=== PATIENT | male | born 1975 | race Caucasian/White ===

== ENCOUNTER 2017-02-18 15:58 | Emergency (ER) | payer MEDICAID, OTHER ==
[2017-02-18] MEDS ORDERED: Adenosine 12 MG/4 ML SDV IVPUSH ONE (16:15)
[2017-02-18] MEDS ORDERED: Adenosine 12 MG/4 ML SDV ONE (16:22)
--- NOTE | 2017-02-18 16:33 | EDM.PDOC ---
ED HPI GENERAL MEDICAL PROBLEM - General Chief Complaint: Cardiovascular Problem Stated Complaint: [facility] Time Seen by Provider: 02/18/17 16:05 Source of Information: Reports: Patient, Provider (Anni Bear), RN Notes Reviewed History Limitations: Reports: No Limitations - History of Present Illness INITIAL COMMENTS - FREE TEXT/NARRATIVE: The patient states that he developed lightheadedness while sitting at a computer around 13:50 this afternoon. A short while later, he developed the sensation of an elevated heart rate, dyspnea, he became weak, nauseous, and his arms and legs he came tingly. He went to work at 14:00, but his symptoms persisted. His heart rate felt to be over 200 at 14:15, therefore he went to the [facility] where an ECG demonstrated an SVT at 223 bpm (we have a fax of that ECG. He states that his heart rate dropped to 130 following a Valsalva maneuver along with carotid massage, however, it has persisted at 130. The patient was brought here by EMS. The patient states that he had similar symptoms about one year ago, however, his symptoms resolved after about 20 minutes, and he did not seek medical evaluation. The patient denies recent lower extremity edema. He acknowledges that he drinks about 6 cans of soda per day, although only one today. The patient's PCP is Dr. English, from [place]. - Related Data Allergies Allergy/AdvReac Type Severity Reaction Status Date / Time No Known Allergies Allergy Verified 02/18/17 16:10 Home Meds: Home Meds ALPRAZolam [Xanax] 1 mg PO BID PRN 02/18/17 [History] Past Medical History Gastrointestinal History: Reports: GERD Psychiatric History: Reports: Anxiety, Bipolar, Depression Endocrine/Metabolic History: Reports: Obesity/BMI 30+ - Past Surgical History HEENT Surgical History: Reports: Oral Surgery ([place] teeth extraction) GI Surgical History: Reports: Ciro Fundoplication Social & Family History - Tobacco Use Smoking Status *Q: Current Every Day Smoker Years of Tobacco use: 19 Packs/Tins Daily: 2 Packs/Tins Daily Comment: Down from 3 ppd - Alcohol Use Alcohol Use History: Yes Date/Time of Last Drink Comment: None since 2009 Alcohol Use in Last Twelve Months: No - Recreational Drug Use Recreational Drug Use: Yes Drug Use in Last 12 Months: No Recreational Drug Type: Reports: Marijuana/Hashish - Living Situation & Occupation Living situation: Reports: , with Family (kids) Occupation: Employed ([employer]) ED ROS GENERAL - Review of Systems Review Of Systems: See Below Constitutional: Reports: No Symptoms HEENT: Reports: No Symptoms Respiratory: Reports: No Symptoms Cardiovascular: Reports: No Symptoms Endocrine: Reports: No Symptoms GI/Abdominal: Reports: Diarrhea (3 and 4 days ago), Vomiting (3 and 4 days ago) : Reports: No Symptoms Musculoskeletal: Reports: No Symptoms Skin: Reports: No Symptoms Neurological: Reports: No Symptoms Psychiatric: Reports: No Symptoms Hematologic/Lymphatic: Reports: No Symptoms Immunologic: Reports: No Symptoms ED EXAM, GENERAL - Physical Exam Exam: See Below Exam Limited By: No Limitations General Appearance: Alert, WD/WN, No Apparent Distress Eye Exam: Bilateral Eye: Normal Inspection Ears: Normal External Exam, Hearing Grossly Normal Nose: Normal Inspection, No Blood Throat/Mouth: Normal Inspection, Normal Lips, Normal Voice, No Airway Compromise Head: Atraumatic, Normocephalic Neck: Normal Inspection, Full Range of Motion Respiratory/Chest: No Respiratory Distress, Lungs Clear, Normal Breath Sounds, No Accessory Muscle Use Cardiovascular: Normal Peripheral Pulses, No Gallop, No JVD, No Murmur, No Rub, Tachycardia (regular) Peripheral Pulses: 4+: Radial (L), Radial (R) GI/Abdominal: Normal Bowel Sounds, Soft, Non-Tender, No Organomegaly, No Distention, No Abnormal Bruit, No Mass, Other (Obese) (Male) Exam: Deferred Rectal (Males) Exam: Deferred Back Exam: Normal Inspection, Full Range of Motion, NT Extremities: Normal Inspection, Normal Range of Motion, No Pedal Edema, Normal Capillary Refill Neurological: Alert, Oriented, Normal Cognition, No Motor/Sensory Deficits Psychiatric: Normal Affect, Anxious Skin Exam: Warm, Dry, Intact, Normal Color, No Rash EKG INTERPRETATION EKG Date: 02/18/17 Time: 16:17 Rhythm: Other (Sinus tachycardia versus atrial flutter with 2:1 conduction versus reentrant tachycardia) Rate (Beats/Min): 126 Raymond: LAD-Left Raymond Deviation P-Wave: Present QRS: Normal ST-T: Normal QT: Normal Comparison: NA - No Prior EKG Course - Vital Signs Last Recorded V/S: Last Vital Signs Temp 36.2 C 10/24/17 16:04 Pulse 133 H 02/18/17 16:04 Resp 22 H 02/18/17 16:04 BP 104/83 02/18/17 16:04 Pulse Ox 98 02/18/17 16:04 - Orders/Labs/Meds Orders: Active Orders 24 hr Category Date Time Status EKG Documentation Completion [RC] STAT Care 02/18/17 16:05 Active Diltiazem 125 mg Med 02/18/17 16:45 Active Sodium Chloride 0.9% [Normal Saline] 100 ml IV TITRATE Sodium Chloride 0.9% [Normal Saline] 1,000 ml Med 02/18/17 17:00 Active IV ASDIRECTED EKG 12 Lead [EK] Stat Ther 02/18/17 16:27 Ordered Medication Orders Diltiazem HCl 125 mg/ Sodium (Chloride) 125 mls @ 10 mls/hr IV TITRATE JENNIE; 10 MG/HR PRN Reason: Protocol Last Admin: 02/18/17 17:37 Dose: 10 mg/hr, 10 mls/hr Sodium Chloride (Normal Saline) 1,000 mls @ 150 mls/hr IV ASDIRECTED JENNIE Last Admin: 02/18/17 17:36 Dose: 150 mls/hr Labs: Laboratory Tests 02/18/17 02/18/17 02/18/17 Range/Units 16:30 16:30 16:30 WBC 7.28 (4.23-9.07) K/mm3 RBC 5.39 (4.63-6.08) M/mm3 Hgb 15.5 (13.7-17.5) gm/L Hct 44.2 (40.1-51.0) % MCV 82.0 (79.0-92.2) fl MCH 28.8 (25.7-32.2) pg MCHC 35.1 (32.2-35.5) g/dl RDW Std Deviation 37.4 (35.1-43.9) fL Plt Count 290 (163-337) K/mm3 MPV 10.3 (9.4-12.3) fl Neutrophils % (Manual) 56 (40-60) % Band Neutrophils % 0 (0-10) % Lymphocytes % (Manual) 30 (20-40) % Atypical Lymphs % 0 % Monocytes % (Manual) 12 H (2-10) % Eosinophils % (Manual) 1 (0.8-7.0) % Basophils % (Manual) 1 (0.2-1.2) Platelet Estimate Adequate Plt Morphology Comment Normal RBC Morph Comment Normal PT 10.2 (8.0-13.0) SECONDS INR 0.94 APTT 31 (22-36) SECONDS D-Dimer, Quantitative 0.20 (0.19-0.59) mg/L Sodium 140 (136-145) mEq/L Potassium 3.4 L (3.5-5.1) mEq/L Chloride 106 (98-107) mEq/L Carbon Dioxide 24 (21-32) mEq/L Anion Gap 13.4 (5-15) BUN 11 (7-18) mg/dL Creatinine 0.9 (0.7-1.3) mg/dL Est Cr Clr Drug Dosing 106.61 mL/min Estimated GFR (MDRD) > 60 (>60) mL/min BUN/Creatinine Ratio 12.2 L (14-18) Glucose 105 (74-106) mg/dL Calcium 8.9 (8.5-10.1) mg/dL Magnesium 1.9 (1.8-2.4) mg/dl Total Bilirubin 1.5 H (0.2-1.0) mg/dL AST 20 (15-37) U/L ALT 35 (16-63) U/L Alkaline Phosphatase 101 (46-116) U/L Troponin I 0.018 (0.00-0.056) ng/mL NT-Pro-B Natriuret Pep 24 (0-125) pg/mL Total Protein 6.7 (6.4-8.2) g/dl Albumin 3.7 (3.4-5.0) g/dl Globulin 3.0 gm/dL Albumin/Globulin Ratio 1.2 (1-2) Meds: Medications Generic Name Dose Route Start Last Admin Trade Name Freq PRN Reason Stop Dose Admin Diltiazem HCl 125 mg/ Sodium 125 mls @ 10 mls/hr 02/18/17 16:45 02/18/17 17: 37 Chloride IV 10 mg/hr TITRATE JENNIE 10 mls/hr Protocol Administration 10 MG/HR Sodium Chloride 1,000 mls @ 150 mls/hr 02/18/17 17:00 02/18/17 17:36 Normal Saline IV 150 mls/hr ASDIRECTED JENNIE Administration Discontinued Medications Generic Name Dose Route Start Last Admin Trade Name Eleuterio PRN Reason Stop Dose Admin Adenosine Confirm 02/18/17 16:22 02/18/17 16:25 Adenocard Administered 02/18/17 16:23 Not Given Dose 12 mg .ROUTE .STK-MED ONE Adenosine 12 mg 02/18/17 16:15 02/18/17 16:25 Adenocard IVPUSH 02/18/17 16:16 12 mg NOW ONE Administration Diltiazem HCl 10 mg 02/18/17 16:45 02/18/17 17:35 Diltiazem IVPUSH 02/18/17 16:46 10 mg ONETIME STA Administration Sodium Chloride Confirm 02/18/17 17:24 02/18/17 17:39 Normal Saline Administered 02/18/17 17:25 Not Given Dose 100 mls @ as directed .ROUTE .STK-MED ONE - Re-Assessments/Exams Free Text/Narrative Re-Assessment/Exam: 02/18/17 16:37 A continuous ECG was run during the administration of 12 mg IV adenosine. The patient's heart rate slowed, however, no P waves are seen in the ventricular interspace. This would not be consistent with either sinus tachycardia or atrial flutter. This would be consistent with atrial fibrillation, however, the patient's rate has been extraordinarily regular at 130, and P waves are seen, excluding atrial fibrillation. I have to, therefore to conclude that this is a reentrant tachycardia that, unusually, restarted following the adenosine. I will start the patient on IV Cardizem. 02/18/17 17:20 Portable chest radiograph appears to be grossly normal. Cardiac silhouette is within normal limits. No pulmonary vascular congestion. No pleural effusions. No focal infiltrate. No pneumothorax. Formal read per the Radiologist pending. 02/18/17 17:[address] Soriano at 17:55. He accepts the patient for admission. 02/18/17 18:05 The above was discussed with the patient, his , and 2 daughters. I explained his test results, and the reason that he is on the Cardizem drip, which currently has his heart rate reduced to around 100. Nevertheless, the patient said that he wants to go home. I explained that he should expect that his heart rate will go back up if the Cardizem drip is discontinued. He stated that he was aware of that, but that he wanted to leave anyway. I informed him that he would have to sign AMA, and he agreed. 02/18/17 19:10 Dr. Soriano notified of the patient leaving AMA. Departure - Departure Time of Disposition: 17:58 Disposition: Against Medical Advice 07 Condition: Fair Clinical Impression: Tachycardia Instructions: Sinus Tachycardia Referrals: Sheldon English MD [Primary Care Provider] - Additional Instructions: You were seen in the emergency room for an elevated heart rate, with lightheadedness, shortness of breath, tingling and numbness of her arms and legs , weakness, and nausea. You were originally found to have a heart rate of 223 at [facility], down to 130 after some maneuvers. The exact cause of your elevated heart rate is not clear, but appears to be a reentrant tachycardia. Your heart rate was slowed to a normal rate with the IV medicine Cardizem. We recommended that you be admitted to the hospital for further evaluation and treatment, however, you have elected to go home AGAINST MEDICAL ADVICE. If you change your mind, please return to the ER, otherwise, please follow-up with your PCP, Dr. Albright, at the next available appointment. - My Orders Last 24 Hours: My Active Orders 02/18/17 16:05 EKG Documentation Completion [RC] STAT 02/18/17 16:27 EKG 12 Lead [EK] Stat 02/18/17 16:45 Diltiazem 125 mg Sodium Chloride 0.9% [Normal Saline] 100 ml IV TITRATE 02/18/17 17:00 Sodium Chloride 0.9% [Normal Saline] 1,000 ml IV ASDIRECTED - Assessment/Plan Last 24 Hours: My Active Orders 02/18/17 16:05 EKG Documentation Completion [RC] STAT 02/18/17 16:27 EKG 12 Lead [EK] Stat 02/18/17 16:45 Diltiazem 125 mg Sodium Chloride 0.9% [Normal Saline] 100 ml IV TITRATE 02/18/17 17:00 Sodium Chloride 0.9% [Normal Saline] 1,000 ml IV ASDIRECTED
[2017-02-18] MEDS ORDERED: Diltiazem 125 MG in Sodium Chloride 0.9% 100 ML IV SCH (16:45)
[2017-02-18] MEDS ORDERED: Diltiazem 25 MG/5 ML SDV IVPUSH STA (16:45)
[2017-02-18] MEDS ORDERED: Sodium Chloride 0.9% 1,000 ML IV SCH (17:00)
[2017-02-18] MEDS ORDERED: Sodium Chloride 0.9% 100 ML ONE (17:24)
--- NOTE | 2017-02-18 17:30 | CR ---
Chest: Portable view of the chest was obtained. Comparison: No previous chest x-ray. Heart size and mediastinum are normal. Lungs are clear. Bony structures are grossly intact. Impression: 1. Nothing acute is identified on portable chest x-ray. Diagnostic code #1
== END 2017-02-18 18:20 | disposition left against medical advice (07) ==
LOC: JD.ED 15:58
DX: R00.0 Tachycardia, unspecified (principal); F17.210 Nicotine dependence, cigarettes, uncomplicated
CPT/HCPCS: 36415; 71010; 80053; 83735; 83880; 84484; 85025; 85379; 85610; 85730; 96365; 96375; 96376; 99285; J0153; J3490; J7030; J7040

== ENCOUNTER 2018-09-06 12:22 | Emergency (ER) | payer BC, OTHER ==
--- NOTE | 2018-09-06 13:19 | EDM.PDOC ---
ED HPI GENERAL MEDICAL PROBLEM - General Chief Complaint: Upper Extremity Injury/Pain Stated Complaint: LEFT ELBOW PAIN Time Seen by Provider: 09/06/18 12:34 Source of Information: Reports: Patient, RN Notes Reviewed History Limitations: Reports: No Limitations - History of Present Illness INITIAL COMMENTS - FREE TEXT/NARRATIVE: Patient is a 42-year-old male who presents to the ED for the evaluation of a left elbow injury. The patient notes this injury took place roughly 1 month ago. He states he was helping move a very heavy box with another gentleman, when the other gentleman dropped his end of the box. This resulted in the patient being only one supporting the box. The patient notes that his had some pain in his left elbow since that, however he is been working long hours and harder, and noticed that last night the pain worsened. 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 He would rate his pain at a 6 out of 10 today. The patient states that he has been taking 2 tabs of Tylenol about every 45 hours, and 2 tabs of ibuprofen every 45 hours as well during the day to alleviate his pain, and this is not providing much pain relief any longer. The patient states that his primary care provider would be Anni Bear under the [facility]. Left Elbow Pain Score (Numeric/FACES): 6 - Related Data Allergies Allergy/AdvReac Type Severity Reaction Status Date / Time No Known Allergies Allergy Verified 04/08/18 07:16 Home Meds: Home Meds HYDROcodone/Ibuprofen [Hydrocodone-Ibuprofen 7.5-200] 1 each PO QPM #10 tablet 09/06/18 [Rx] traMADol [Ultram] 50 mg PO Q6H PRN #28 tab 09/06/18 [Rx] Past Medical History Cardiovascular History: Reports: Arrhythmia Gastrointestinal History: Reports: GERD, Other (See Below) Other Gastrointestinal History: esophagitis Genitourinary History: Reports: Renal Calculus Psychiatric History: Reports: Anxiety, Bipolar, Depression Endocrine/Metabolic History: Reports: Obesity/BMI 30+ - Past Surgical History HEENT Surgical History: Reports: Oral Surgery GI Surgical History: Reports: Ciro Fundoplication Other Musculoskeletal Surgeries/Procedures:: l elbow pain Social & Family History - Family History Family Medical History: Noncontributory - Tobacco Use Smoking Status *Q: Current Every Day Smoker Years of Tobacco use: 25 Packs/Tins Daily: 2 - Caffeine Use Caffeine Use: Reports: Soda - Recreational Drug Use Recreational Drug Use: No - Living Situation & Occupation Living situation: Reports: , with Significant Other (Girlfriend), with Family (7 kids) 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) Review of Systems - Review of Systems Review Of Systems: See Below Constitutional: Reports: No Symptoms Eyes: Reports: No Symptoms Ears: Reports: No Symptoms Nose: Reports: No Symptoms Mouth/Throat: Reports: No Symptoms Respiratory: Reports: No Symptoms Cardiovascular: Reports: No Symptoms GI/Abdominal: Reports: No Symptoms Genitourinary: Reports: No Symptoms Musculoskeletal: Reports: Joint Pain ( Left elbow pain) Skin: Reports: No Symptoms Neurological: Reports: No Symptoms Psychiatric: Reports: No Symptoms ED EXAM, GENERAL - Physical Exam Exam: See Below Exam Limited By: No Limitations General Appearance: Alert, WD/WN, No Apparent Distress Respiratory/Chest: No Respiratory Distress, Lungs Clear, Normal Breath Sounds, No Accessory Muscle Use, Chest Non-Tender Cardiovascular: Normal Peripheral Pulses, Regular Rate, Rhythm, No Murmur Peripheral Pulses: 3+: Radial (L), Radial (R) Extremities: Normal Inspection, Normal Range of Motion, Normal Capillary Refill , Arm Pain (Left lateral elbow pain. This is most prominent over his lateral epicondyles. The pain is mostly with gripping, supination and pronation of the left wrist and hand.) Neurological: Alert, Oriented, Normal Cognition, Normal Reflexes, No Motor/ Sensory Deficits Psychiatric: Normal Affect, Normal Mood Skin Exam: Warm, Dry, Intact, Normal Color, No Rash Course - Vital Signs Last Recorded V/S: Last Vital Signs Temp 97.0 F 09/06/18 12:30 Pulse 80 09/06/18 12:30 Resp 14 09/06/18 12:30 BP 125/88 09/06/18 12:30 Pulse Ox 100 09/06/18 12:30 - Re-Assessments/Exams Free Text/Narrative Re-Assessment/Exam: 09/06/18 13:38 Patient presents to the ED for the evaluation of left elbow pain. This injury did take place roughly 1 month ago, I do not think that he has fractured any bones, it is likely that this is a soft tissue injury, I did explain to the patient the best imaging modality would be an MRI at this point. I did write him with an outpatient MRI order of his left elbow, and directed him to follow up with Anni Bear. I did provide the gentleman with tramadol for pain relief during the day, and hydrocodone/ibuprofen 7.5/200 for nighttime use. I did caution the gentleman on overuse of the joint in that constant aggravation of this injury will not provide him appropriate amount of time to heal. 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 I did provide the gentleman with a work note for when his MRI get scheduled so that he might be able to attend his appointment without his work being upset. Departure - Departure Time of Disposition: 13:15 Disposition: Home, Self-Care 01 Condition: Fair Clinical Impression: Left elbow pain - Discharge Information *PRESCRIPTION DRUG MONITORING PROGRAM REVIEWED*: Yes *COPY OF PRESCRIPTION DRUG MONITORING REPORT IN PATIENT AINSLEY: No Prescriptions: HYDROcodone/Ibuprofen [Hydrocodone-Ibuprofen 7.5-200] 1 each PO QPM #10 tablet traMADol [Ultram] 50 mg PO Q6H PRN #28 tab PRN Reason: Pain Instructions: Musculoskeletal Pain Referrals: PCP,None [Primary Care Provider] - Forms: ED Department Discharge, ED Return to Work/School Form Additional Instructions: You have been evaluated in the ED for your left elbow pain Your injury is likely involving the soft tissue of your left elbow and forearm, the best imaging modality for this is an MRI, I have provided with an order for an outpatient MRI, our x-ray department will contact you to schedule this appointment. Please follow up with Anni Bear after the MRI has been done, as she can provide you with further management of your injury. Please use ice as tolerated to the affected area. You may take tylenol 500 mg or ibuprofen 600mg q6 hrs for pain relief. Please do so until you have a tolerable level of pain with activity. Do not exceed 4000mg tylenol, Do not exceed 3200mg ibuprofen in a 24 hour time period. You have been provided with a prescription for tramadol, 50 mg, please take every 6 hours as needed for pain not relieved by Tylenol or ibuprofen alone. You have been provided with hydrocodone/ibuprofen 7.5/200, please take 1 tab before bed time as needed for pain relief. Please watch how much ibuprofen you' re taking in a day, as you should not exceed 3200 mg in a 24-hour time span. Please return to ED if your symptoms should change or worsen.
== END 2018-09-06 13:37 | disposition home or self-care (01) ==
LOC: JD.ED 12:22
DX: M25.522 Pain in left elbow (principal); E66.9 Obesity, unspecified; F17.210 Nicotine dependence, cigarettes, uncomplicated
CPT/HCPCS: 99283

== ENCOUNTER 2020-11-23 18:01 | Emergency (ER) | payer MEDICAID ==
--- NOTE | 2020-11-23 19:28 | EDM.PDOC ---
ED HPI GENERAL MEDICAL PROBLEM - General Chief Complaint: Abdominal Pain Stated Complaint: HERNIA PAIN Time Seen by Provider: 11/23/20 19:20 - History of Present Illness INITIAL COMMENTS - FREE TEXT/NARRATIVE: 45-year-old male presents the emergency room with what he believes is hernia pain. Patient was diagnosed with a ventral hernia many years ago and thinks this is coming back. It was not big enough to do anything with at that time so it was never repaired. The patient's been coughing a little bit the last couple of days and this pain is been getting significantly worse with the coughing. He has not had any nausea vomiting fevers diarrhea or constipation. He has no other complaints at this time. The patient the past has had a Loki fundoplication for Munoz's and is doing much better with this. Treatments EBAY RESELLER: Reports: Other (see below) Other Treatments EBAY RESELLER: motrin and tylenol Left Upper Abdomen Pain Score (Numeric/FACES): 5 - Related Data Allergies Allergy/AdvReac Type Severity Reaction Status Date / Time No Known Allergies Allergy Verified 11/18/18 12:33 Home Meds: Home Meds ClonazePAM [KlonoPIN] 0.5 mg PO ASDIRECTED 11/23/20 [History] Metoprolol Succinate 25 mg PO DAILY 11/23/20 [History] OLANZapine [Olanzapine] 15 mg PO DAILY 11/23/20 [History] Omeprazole 20 mg PO DAILY 11/23/20 [History] busPIRone [Buspar] 30 mg PO BEDTIME 11/23/20 [History] lamoTRIgine [Lamotrigine] 150 mg PO DAILY 11/23/20 [History] Past Medical History Cardiovascular History: Reports: Arrhythmia Respiratory History: Reports: None Gastrointestinal History: Reports: GERD, Other (See Below) Other Gastrointestinal History: esophagitis Genitourinary History: Reports: Renal Calculus Neurological History: Reports: None Psychiatric History: Reports: Anxiety, Bipolar, Depression Endocrine/Metabolic History: Reports: Obesity/BMI 30+ Hematologic History: Reports: None Immunologic History: Reports: None Oncologic (Cancer) History: Reports: None Dermatologic History: Reports: None - Infectious Disease History Infectious Disease History: Reports: None - Past Surgical History Head Surgeries/Procedures: Reports: None HEENT Surgical History: Reports: Oral Surgery GI Surgical History: Reports: Ciro Fundoplication Male Surgical History: Reports: None Other Musculoskeletal Surgeries/Procedures:: l elbow pain Social & Family History - Family History Family Medical History: No Pertinent Family History - Tobacco Use Tobacco Use Status *Q: Current Every Day Tobacco User Years of Tobacco use: 28 Packs/Tins Daily: 2 - Caffeine Use Caffeine Use: Reports: Soda - Living Situation & Occupation Living situation: Reports: , with Significant Other (Girlfriend), with Family (7 kids) Occupation: Employed ([employer]) ED ROS GENERAL - Review of Systems Review Of Systems: See Below Constitutional: Reports: No Symptoms HEENT: Reports: No Symptoms Respiratory: Reports: Cough. Denies: Shortness of Breath, Sputum Cardiovascular: Reports: No Symptoms Endocrine: Reports: No Symptoms GI/Abdominal: Reports: Abdominal Pain. Denies: Constipation, Diarrhea, Nausea, Vomiting Musculoskeletal: Reports: No Symptoms Skin: Reports: No Symptoms Neurological: Reports: No Symptoms Psychiatric: Reports: No Symptoms ED EXAM, GENERAL - Physical Exam Exam: See Below Exam Limited By: No Limitations General Appearance: Alert, No Apparent Distress Head: Atraumatic, Normocephalic Neck: Normal Inspection, Supple, Non-Tender, Full Range of Motion Respiratory/Chest: No Respiratory Distress, Lungs Clear, Normal Breath Sounds Cardiovascular: Normal Peripheral Pulses, Regular Rate, Rhythm, No Edema GI/Abdominal: Normal Bowel Sounds, Soft, Tender (Superficial tenderness just to the left of the midline and just above the umbilicus. Is really hard isolator defect and hernia with the body habitus of this gentleman. He has exquisite tenderness here however) Extremities: Normal Inspection Neurological: Alert, Oriented, Normal Cognition Psychiatric: Normal Affect, Normal Mood Course - Vital Signs Last Recorded V/S: Last Vital Signs Temp 36.5 C 11/23/20 18:36 Pulse 73 11/23/20 18:36 Resp 20 11/23/20 18:36 BP 133/94 H 11/23/20 18:36 Pulse Ox 96 11/23/20 18:36 - Orders/Labs/Meds Orders: Active Orders 24 hr Category Date Time Status Abdomen Pelvis w Cont [CT] Stat Exams 11/23/20 19:32 Taken Sodium Chloride 0.9% [Saline Flush] Med 11/23/20 20:30 Active 10 ml FLUSH ASDIRECTED Medication Orders Sodium Chloride (Sodium Chloride 0.9% 10 Ml Syringe) 10 ml FLUSH ASDIRECTED JENNIE Last Admin: 11/23/20 20:52 Dose: 10 ml Documented by: RAMAN Labs: Laboratory Tests 11/23/20 11/23/20 11/23/20 Range/Units 19:42 19:42 20:38 WBC 7.97 (4.23-9.07) K/mm3 RBC 5.15 (4.63-6.08) M/mm3 Hgb 14.8 (13.7-17.5) gm/dl Hct 43.7 (40.1-51.0) % MCV 84.9 (79.0-92.2) fl MCH 28.7 (25.7-32.2) pg MCHC 33.9 (32.2-35.5) g/dl RDW Std Deviation 40.7 (35.1-43.9) fL Plt Count 280 (163-337) K/mm3 MPV 10.6 (9.4-12.3) fl Neut % (Auto) 57.5 (34.0-67.9) % Lymph % (Auto) 31.2 (21.8-53.1) % [place] % (Auto) 8.4 (5.3-12.2) % Eos % (Auto) 2.1 (0.8-7.0) Baso % (Auto) 0.5 (0.1-1.2) % Neut # (Auto) 4.58 (1.78-5.38) K/mm3 Lymph # (Auto) 2.49 (1.32-3.57) K/mm3 [place] # (Auto) 0.67 (0.30-0.82) K/mm3 Eos # (Auto) 0.17 (0.04-0.54) K/mm3 Baso # (Auto) 0.04 (0.01-0.08) K/mm3 Sodium 145 (136-145) mEq/L Potassium 3.3 L (3.5-5.1) mEq/L Chloride 108 H (98-107) mEq/L Carbon Dioxide 28 (21-32) mEq/L Anion Gap 12.3 (5-15) BUN 14 (7-18) mg/dL Creatinine 1.0 (0.7-1.3) mg/dL Est Cr Clr Drug Dosing 92.15 mL/min Estimated GFR (MDRD) > 60 (>60) mL/min BUN/Creatinine Ratio 14.0 (14-18) Glucose 101 H (70-99) mg/dL Calcium 8.4 L (8.5-10.1) mg/dL Total Bilirubin 0.4 (0.2-1.0) mg/dL AST 18 (15-37) U/L ALT 45 (16-63) U/L Alkaline Phosphatase 88 (46-116) U/L Total Protein 6.6 (6.4-8.2) g/dl Albumin 3.7 (3.4-5.0) g/dl Globulin 2.9 gm/dL Albumin/Globulin Ratio 1.3 (1-2) Lipase 80 (73-393) U/L Urine Color Light yellow (Yellow) Urine Appearance Clear (Clear) Urine pH 7.0 (5.0-8.0) Ur Specific [place] 1.020 (1.005-1.030) Urine Protein Negative (Negative) Urine Glucose (UA) Negative (Negative) Urine Ketones Negative (Negative) Urine Occult Blood Negative (Negative) Urine Nitrite Negative (Negative) Urine Bilirubin Negative (Negative) Urine Urobilinogen 0.2 (0.2-1.0) Ur Leukocyte Esterase Negative (Negative) Meds: Medications Generic Name Dose Route Start Last Admin Trade Name Frejohn PRN Reason Stop Dose Admin Sodium Chloride 10 ml 11/23/20 20:30 11/23/20 20:52 Sodium Chloride 0.9% 10 Ml Syringe FLUSH 10 ml ASDIRECTED JENNIE Administration Discontinued Medications Generic Name Dose Route Start Last Admin Trade Name Eleuterio PRN Reason Stop Dose Admin Diatrizoate Meglum/Diatrizoate Sod 120 ml 11/23/20 20:29 11/23/20 20:51 Diatrizoate Meglumine/Diatrizoate Sodium 37% 120 Ml Bottle PO 11/23/20 20:30 90 ml ONETIME ONE Administration Fentanyl 50 mcg 11/23/20 20:05 11/23/20 20:12 Fentanyl 100 Mcg/2 Ml Sdv IVPUSH 11/23/20 20:06 50 mcg ONETIME ONE Administration Lactated Ringer's 1,000 mls @ 999 mls/hr 11/23/20 19:31 11/23/20 19:49 Ringers, Lactated IV 11/23/20 20:31 999 mls/hr .BOLUS ONE Administration Iopamidol 50 ml 11/23/20 20:29 11/23/20 20:51 Iopamidol 612 Mg/Ml 50 Ml Sdv IVPUSH 11/23/20 20:30 25 ml ONETIME ONE Administration Iopamidol 100 ml 11/23/20 20:29 11/23/20 20:52 Iopamidol 612 Mg/Ml 100 Ml Bottle IVPUSH 11/23/20 20:30 100 ml ONETIME ONE Administration Potassium Chloride 40 meq 11/23/20 21:35 11/23/20 21:40 Potassium Chloride 20 Meq Tab.Er PO 11/23/20 21:36 40 meq ONETIME ONE Administration - Re-Assessments/Exams Free Text/Narrative Re-Assessment/Exam: 11/23/20 19:33 Labs work on hydration in order a CT his exam is a little unreliable because of his obesity. 11/23/20 21:36 Potassium is a little low we will give him 40 mEq of oral K 11/23/20 22:05 Evaluation is negative for any acute changes. He has nonobstructing left kidney stone he has hepatics steatosis and area of hypodensity in the right lobe of the liver that is too small to characterize. Departure - Departure Time of Disposition: 22:06 Disposition: Home, Self-Care 01 Clinical Impression: Abdominal wall pain - Discharge Information Referrals: Anni Bear, [facility] [Primary Care Provider] - Forms: ED Department Discharge Additional Instructions: Return to the emergency room with any questions problems or worsening symptoms. Follow-up with your regular healthcare provider this next week for recheck. Tylenol as needed for aches and pains. Do not exceed the recommended dose on the bottle. Sepsis Event Note (ED) - Evaluation Sepsis Screening Result: No Definite Risk - Focused Exam Vital Signs: Vital Signs Temp Pulse Resp BP Pulse Ox 11/23/20 18:36 36.5 C 73 20 133/94 H 96 - My Orders Last 24 Hours: My Active Orders 11/23/20 19:32 Abdomen Pelvis w Cont [CT] Stat 11/23/20 20:30 Sodium Chloride 0.9% [Saline Flush] 10 ml FLUSH ASDIRECTED - Assessment/Plan Last 24 Hours: My Active Orders 11/23/20 19:32 Abdomen Pelvis w Cont [CT] Stat 11/23/20 20:30 Sodium Chloride 0.9% [Saline Flush] 10 ml FLUSH ASDIRECTED
[2020-11-23] MEDS ORDERED: Lactated Ringers 1,000 ML IV ONE (19:31)
[2020-11-23] MEDS ORDERED: fentaNYL 100 MCG/2 ML SDV IVPUSH ONE (20:05)
[2020-11-23] MEDS ORDERED: Diatrizoate Meglumine/Diatrizoate Sodium 37% 120 ML Bottle PO ONE (20:29)
[2020-11-23] MEDS ORDERED: Iopamidol 612 MG/ML 100 ML Bottle IVPUSH ONE (20:29)
[2020-11-23] MEDS ORDERED: Iopamidol 612 MG/ML 50 ML SDV IVPUSH ONE (20:29)
[2020-11-23] MEDS ORDERED: Sodium Chloride 0.9% 10 ML Syringe FLUSH SCH (20:30)
[2020-11-23] MEDS ORDERED: Potassium Chloride 20 MEQ Tab.ER PO ONE (21:35)
--- NOTE | 2020-11-24 06:45 | CT ---
CT abdomen and pelvis Technique: Multiple axial sections were obtained from above the dome of the diaphragm inferiorly through the pubic symphysis. Intravenous and oral contrast were utilized. Delayed images were obtained through the bladder. Reconstructed coronal and sagittal images were also obtained. Comparison: Prior CT abdomen and pelvis study performed without contrast dated 04/19/[address] study of 01/18/13. Findings: Visualized lung bases show nothing acute. Liver shows slight fatty infiltration. Minimal low density finding is seen within the inferior right lobe of the liver which appears stable from previous CT studies and is therefore benign. Small amount of accessory splenic tissue is noted medial to the spleen. Spleen size is normal. Adrenal glands show no nodule. Pancreas is within normal limits. Gallbladder contains no calcified gallstones. Kidneys show symmetric contrast enhancement. Several small nonobstructing calculi are seen within the left kidney. No ureteral dilatation or ureteral stone is seen. Abdominal aorta shows no aneurysm. No retroperitoneal adenopathy or mesenteric abnormalities are seen. Appendix is not visualized with certainty. No pelvic mass or adenopathy is seen. Delayed images show contrast within the distal ureters and the bladder. Bone window settings were reviewed which show no acute osseous findings. Impression: 1. Findings as noted above which are stable. 2. Nothing acute is appreciated on CT study of the abdomen and pelvis. Diagnostic code #2 I agree with preliminary report from [facility], finalized on 11/23/20, 10:57 PM CDT, code 1
== END 2020-11-23 22:14 | disposition home or self-care (01) ==
LOC: JD.ED 18:01
DX: R10.12 Left upper quadrant pain (principal); K21.9 Gastro-esophageal reflux disease without esophagitis; E66.9 Obesity, unspecified; Z68.39 Body mass index [BMI] 39.0-39.9, adult; Z79.899 Other long term (current) drug therapy; Z72.0 Tobacco use
CPT/HCPCS: 36415; 74177; 80053; 81003; 83690; 85025; 96374; 99284; A9270; J3010; J7120; Q9963; Q9967

== ENCOUNTER 2020-12-16 15:43 | Emergency (ER) | payer MEDICAID ==
[2020-12-16] MEDS ORDERED: Ondansetron 4 MG/2 ML SDV IVPUSH ONE (16:53)
[2020-12-16] MEDS ORDERED: HYDROmorphone 1 MG/ML Syringe IVPUSH STA (16:53)
--- NOTE | 2020-12-16 16:53 | EDM.PDOC ---
ED HPI GENERAL MEDICAL PROBLEM - General Chief Complaint: Genitourinary Problem Stated Complaint: KIDNEY STONES Time Seen by Provider: 12/16/20 16:48 Source of Information: Reports: Patient, RN Notes Reviewed History Limitations: Reports: No Limitations - History of Present Illness INITIAL COMMENTS - FREE TEXT/NARRATIVE: Patient is a 45-year-old male who presents to the ER for the evaluation of his left flank pain. Patient has a history of kidney stones, and states that this pain started at around 11 or 1130 this morning. He states that the pain is sharp and stabbing in nature, and seems to come and go. He notes that is very similar to the pain he feels when he has had kidney stones in the past. He has had no fevers or chills, cough or shortness of breath, he has had some nausea but no vomiting or diarrhea. He is complaining of no urinary discomfort at this time. Primary care provider is Anni Bear. Left Lower Back Pain Score (Numeric/FACES): 8 - Related Data Allergies Allergy/AdvReac Type Severity Reaction Status Date / Time No Known Allergies Allergy Verified 12/16/20 16:56 Home Meds: Home Meds ClonazePAM [KlonoPIN] 0.5 mg PO ASDIRECTED 11/23/20 [History] Metoprolol Succinate 25 mg PO DAILY 11/23/20 [History] OLANZapine [Olanzapine] 15 mg PO DAILY 11/23/20 [History] Omeprazole 20 mg PO DAILY 11/23/20 [History] busPIRone [Buspar] 30 mg PO BEDTIME 11/23/20 [History] lamoTRIgine [Lamotrigine] 150 mg PO DAILY 11/23/20 [History] Acetaminophen/oxyCODONE [Percocet 325-5 MG] 1 each PO Q6H PRN #20 tab 12/16/20 [Rx] Ondansetron [Zofran ODT] 4 mg PO Q8H PRN #15 tab.dis 12/16/20 [Rx] Tamsulosin [Tamsulosin 24 Hr] 0.4 mg PO DAILY #7 cap.er 12/16/20 [Rx] Past Medical History Cardiovascular History: Reports: Arrhythmia Respiratory History: Reports: None Gastrointestinal History: Reports: GERD, Other (See Below) Other Gastrointestinal History: esophagitis Genitourinary History: Reports: Renal Calculus Neurological History: Reports: None Psychiatric History: Reports: Anxiety, Bipolar, Depression Endocrine/Metabolic History: Reports: Obesity/BMI 30+ Hematologic History: Reports: None Immunologic History: Reports: None Oncologic (Cancer) History: Reports: None Dermatologic History: Reports: None - Infectious Disease History Infectious Disease History: Reports: None - Past Surgical History Head Surgeries/Procedures: Reports: None HEENT Surgical History: Reports: Oral Surgery GI Surgical History: Reports: Ciro Fundoplication Male Surgical History: Reports: None Other Musculoskeletal Surgeries/Procedures:: l elbow pain Social & Family History - Family History Family Medical History: No Pertinent Family History - Caffeine Use Caffeine Use: Reports: Soda - Living Situation & Occupation Living situation: Reports: , with Significant Other (Girlfriend), with Family (7 kids) Occupation: Employed ([employer]) ED ROS GENERAL - Review of Systems Review Of Systems: Comprehensive ROS is negative, except as noted in HPI. ED EXAM, RENAL/ - Physical Exam Exam: See Below Exam Limited By: No Limitations General Appearance: Alert, WD/WN, No Apparent Distress Respiratory/Chest: No Respiratory Distress, Lungs Clear, Normal Breath Sounds, No Accessory Muscle Use, Chest Non-Tender Cardiovascular: Normal Peripheral Pulses, Regular Rate, Rhythm, No Edema GI/Abdominal: Normal Bowel Sounds, Soft, Non-Tender, No Distention, No Mass Extremities: Normal Inspection, Normal Capillary Refill Neurological: Alert, Oriented, Normal Cognition, No Motor/Sensory Deficits Psychiatric: Normal Affect, Normal Mood Skin Exam: Warm, Dry, Intact, Normal Color, No Rash Course - Vital Signs Last Recorded V/S: Last Vital Signs Temp 97.4 F 12/16/20 16:52 Pulse 79 12/16/20 16:52 Resp 18 12/16/20 16:52 BP 144/97 H 12/16/20 16:52 Pulse Ox 97 12/16/20 16:52 - Orders/Labs/Meds Orders: Active Orders 24 hr Category Date Time Status Strain Urine [RC] ASDIRECTED Care 12/16/20 16:53 Ordered Sodium Chloride 0.9% @ 150 MLS/HR (1000ml Bag) Med 12/16/20 17:00 Ordered Sodium Chloride 0.9% [Normal Saline] 1,000 ml IV ASDIRECTED Medication Orders Sodium Chloride (Normal Saline) 1,000 mls @ 150 mls/hr IV ASDIRECTED [facility] Last Admin: 12/16/20 17:10 Dose: 150 mls/hr Documented by: HALIMA Labs: Laboratory Tests 12/16/20 12/16/20 12/16/20 Range/Units 17:06 17:06 17:07 WBC 9.37 H (4.23-9.07) K/mm3 RBC 5.39 (4.63-6.08) M/mm3 Hgb 15.7 (13.7-17.5) gm/dl Hct 45.8 (40.1-51.0) % MCV 85.0 (79.0-92.2) fl MCH 29.1 (25.7-32.2) pg MCHC 34.3 (32.2-35.5) g/dl RDW Std Deviation 41.1 (35.1-43.9) fL Plt Count 276 (163-337) K/mm3 MPV 10.6 (9.4-12.3) fl Neut % (Auto) 66.6 (34.0-67.9) % Lymph % (Auto) 21.8 (21.8-53.1) % [place] % (Auto) 9.6 (5.3-12.2) % Eos % (Auto) 1.3 (0.8-7.0) Baso % (Auto) 0.4 (0.1-1.2) % Neut # (Auto) 6.24 H (1.78-5.38) K/mm3 Lymph # (Auto) 2.04 (1.32-3.57) K/mm3 [place] # (Auto) 0.90 H (0.30-0.82) K/mm3 Eos # (Auto) 0.12 (0.04-0.54) K/mm3 Baso # (Auto) 0.04 (0.01-0.08) K/mm3 Sodium 146 H (136-145) mEq/L Potassium 3.4 L (3.5-5.1) mEq/L Chloride 108 H (98-107) mEq/L Carbon Dioxide 27 (21-32) mEq/L Anion Gap 14.4 (5-15) BUN 12 (7-18) mg/dL Creatinine 1.0 (0.7-1.3) mg/dL Est Cr Clr Drug Dosing 92.15 mL/min Estimated GFR (MDRD) > 60 (>60) mL/min BUN/Creatinine Ratio 12.0 L (14-18) Glucose 95 (70-99) mg/dL Calcium 8.3 L (8.5-10.1) mg/dL Total Bilirubin 0.3 (0.2-1.0) mg/dL AST 19 (15-37) U/L ALT 43 (16-63) U/L Alkaline Phosphatase 93 (46-116) U/L Total Protein 6.9 (6.4-8.2) g/dl Albumin 3.8 (3.4-5.0) g/dl Globulin 3.1 gm/dL Albumin/Globulin Ratio 1.2 (1-2) Urine Color Yellow (Yellow) Urine Appearance Clear (Clear) Urine pH 7.0 (5.0-8.0) Ur Specific [place] 1.015 (1.005-1.030) Urine Protein Negative (Negative) Urine Glucose (UA) Negative (Negative) Urine Ketones Negative (Negative) Urine Occult Blood 3+ H (Negative) Urine Nitrite Negative (Negative) Urine Bilirubin Negative (Negative) Urine Urobilinogen 0.2 (0.2-1.0) Ur Leukocyte Esterase Negative (Negative) Urine RBC 30-40 H (0-5) /hpf Urine WBC Not seen (0-5) /hpf Ur Epithelial Cells Not seen (0-5) /hpf Urine Bacteria Occasional (FEW) /hpf Urine Mucus Rare (FEW) /hpf Meds: Medications Generic Name Dose Route Start Last Admin Trade Name Freq PRN Reason Stop Dose Admin Sodium Chloride 1,000 mls @ 150 mls/hr 12/16/20 17:00 12/16/20 17:10 Normal Saline IV 150 mls/hr ASDIRECTED JENNIE Administration Discontinued Medications Generic Name Dose Route Start Last Admin Trade Name Freq PRN Reason Stop Dose Admin Hydromorphone HCl 1 mg 12/16/20 16:53 12/16/20 17:10 Hydromorphone 1 Mg/Ml Syringe IVPUSH 12/16/20 16:54 1 mg ONETIME STA Administration Ondansetron HCl 4 mg 12/16/20 16:53 12/16/20 17:10 Ondansetron 4 Mg/2 Ml Sdv IVPUSH 12/16/20 16:54 4 mg ONETIME ONE Administration - Re-Assessments/Exams Free Text/Narrative Re-Assessment/Exam: 12/16/20 17:01 Patient presents to the ER for the evaluation of a possible kidney stone. Presentation is pretty apparent for a left-sided kidney stone, will go ahead and get a CT, basic labs after IV has been established, give him some pain medication, and some fluids and nausea management. 12/16/20 18:16 Patient's urinalysis is positive for gross hematuria. Consistent with kidney stone at this time. CT has been performed, but I am awaiting official read at this time. 12/16/20 18:54 CMP and CBC are unremarkable, CMP shows no renal insufficiency. CT does demonstrate a mildly dilated left renal pelvis and proximal left ureter, findings are caused by 4.3 mm obstructing calculus within the proximal left ureter. No additional ureteral calculi have been visualized, there is multiple nonobstructing calculi within both kidneys. For today's purposes we will go ahead and get the patient home with some pain medication, nausea medication, and have him strain his urine at home, if he does not seem to pass a stone in an appropriate amount of time, we will have him follow-up with urology for surgical removal. Departure - Departure Time of Disposition: 18:55 Disposition: Home, Self-Care 01 Condition: Good Clinical Impression: Kidney stone on left side - Discharge Information *PRESCRIPTION DRUG MONITORING PROGRAM REVIEWED*: Yes *COPY OF PRESCRIPTION DRUG MONITORING REPORT IN PATIENT AINSLEY: No Instructions: Dietary Guidelines to Help Prevent Kidney Stones, Kidney Stones, [id number] Referrals: Anni Bear FIRE PATROL [Primary Care Provider] - Forms: ED Department Discharge Additional Instructions: You were evaluated in the ER today for your left-sided flank pain. Your urinalysis did demonstrate some blood in urine, which is suggestive of a kidney stone at this time. A CT was done at this ER visit, this demonstrated a 4.3 mm stone at the proximal ureter that does cause some obstruction. You have been given a strainer, please use every time you use the bathroom to make sure that the kidney stone has passed. Recommend that you increase your oral fluid intake to try to help the stone pass. You have been given a few tablets of pain medication, please take as prescribed. These medications are highly addictive, please take as few as you need to. These medications also may cause constipation, please take a stool softener like MiraLAX while taking these medications. You have been given a prescription for oral nausea medications as well, but take 1 tab dissolvable under your tongue every 8 hours as needed for ongoing nausea. You have been given a prescription for Flomax, this is thought to help pass the stone by by relaxing the smooth muscle and the ureters helping to facilitate passage. This medication was electronically sent to the [place] pharmacy located in the [facility] grocery store. If your pain is not much better in a week's time, you may need to follow up with your primary care physician, for a possible urology referral. Please return to the ED if your symptoms change or worsen. Sepsis Event Note (ED) - Focused Exam Vital Signs: Vital Signs Temp Pulse Resp BP Pulse Ox 12/16/20 16:52 97.4 F 79 18 144/97 H 97 - My Orders Last 24 Hours: My Active Orders 12/16/20 16:53 Strain Urine [RC] ASDIRECTED 12/16/20 17:00 Sodium Chloride 0.9% @ 150 MLS/HR (1000ml Bag) Sodium Chloride 0.9% [Normal Saline] 1,000 ml IV ASDIRECTED - Assessment/Plan Last 24 Hours: My Active Orders 12/16/20 16:53 Strain Urine [RC] ASDIRECTED 12/16/20 17:00 Sodium Chloride 0.9% @ 150 MLS/HR (1000ml Bag) Sodium Chloride 0.9% [Normal Saline] 1,000 ml IV ASDIRECTED
[2020-12-16] MEDS ORDERED: Sodium Chloride 0.9% 1,000 ML IV SCH (17:00)
--- NOTE | 2020-12-16 18:33 | CT ---
CT abdomen and pelvis Technique: Multiple axial sections were obtained from above the dome of the diaphragm inferiorly through the pubic symphysis. Reconstructed coronal and sagittal images were obtained. Intravenous contrast was not utilized. Comparison: Prior CT abdomen and pelvis exam of 11/23/20 is available. Findings: Mildly dilated left renal pelvis and proximal left ureter is seen. These findings are caused by a 4.3 mm obstructing calculus within the proximal left ureter. No additional ureteral calculi are seen. Multiple nonobstructing calculi are noted within both kidneys. Visualized lung bases show nothing acute. Small low density finding noted inferiorly within the liver measuring about 6 mm which is stable from prior exam most likely representing a minimal cyst. No additional abnormality is appreciated on the noncontrast liver study. Spleen size is normal. Small amount of accessory splenic tissue is seen medial to the spleen. Adrenal glands show no nodule. Pancreas shows no discrete abnormality. Gallbladder contains no calcified gallstones. Abdominal aorta shows no aneurysm. No retroperitoneal adenopathy or mesenteric abnormalities are seen. Appendix is felt to be visualized and is normal in size. No pelvic mass or adenopathy is seen. Bone window settings were reviewed which show no acute osseous finding. Impression: 1. 4.3 mm obstructing calculus within the proximal left ureter. 2. Multiple nonobstructing calculi within both kidneys. 3. Other findings believed to be incidental as noted above. Diagnostic code #3
== END 2020-12-16 19:15 | disposition home or self-care (01) ==
LOC: JD.ED 15:43
DX: N20.2 Calculus of kidney with calculus of ureter (principal); K21.9 Gastro-esophageal reflux disease without esophagitis; E66.9 Obesity, unspecified; Z68.39 Body mass index [BMI] 39.0-39.9, adult; Z79.899 Other long term (current) drug therapy
CPT/HCPCS: 36415; 74176; 80053; 81001; 85025; 96374; 96375; 99284; J1170; J2405; J7030

== ENCOUNTER 2021-10-13 19:14 | Emergency (ER) | payer MEDICAID ==
[2021-10-13] MEDS ORDERED: Sodium Chloride 0.9% 10 ML Syringe FLUSH PRN ×2 (20:39→20:40)
[2021-10-13] MEDS ORDERED: HYDROmorphone 0.5 MG/0.5 ML Syringe IVPUSH ONE ×2 (20:42→22:01)
[2021-10-13] MEDS ORDERED: Sodium Chloride 0.9% 1,000 ML IV SCH (20:45)
== END 2021-10-13 22:31 | disposition home or self-care (01) ==
LOC: JD.ED 19:14
DX: N13.2 Hydronephrosis with renal and ureteral calculous obstruction (principal); E87.6 Hypokalemia; K21.9 Gastro-esophageal reflux disease without esophagitis; F17.210 Nicotine dependence, cigarettes, uncomplicated; E66.9 Obesity, unspecified; Z68.41 Body mass index [BMI] 40.0-44.9, adult; Z79.899 Other long term (current) drug therapy
CPT/HCPCS: 36415; 74176; 80053; 81001; 85025; 86140; 96374; 96376; 99284; J1170; J3490; J7030

== ENCOUNTER 2021-10-22 11:13 | Emergency (ER) | payer MEDICAID ==
[2021-10-22] MEDS ORDERED: Lidocaine 1% 10 ML MDV INJECT ONE (11:57)
== END 2021-10-22 13:00 | disposition home or self-care (01) ==
LOC: JD.ED 11:13
DX: S61.213A Laceration without foreign body of left middle finger without damage to nail, initial encounter (principal); K21.9 Gastro-esophageal reflux disease without esophagitis; F17.210 Nicotine dependence, cigarettes, uncomplicated; E66.9 Obesity, unspecified; Z68.41 Body mass index [BMI] 40.0-44.9, adult; Z79.899 Other long term (current) drug therapy; W26.0XXA Contact with knife, initial encounter
CPT/HCPCS: 12002; 99282

== ENCOUNTER 2022-01-06 09:28 | Emergency (ER) | payer MEDICAID ==
[2022-01-06] MEDS ORDERED: Metoclopramide 10 MG/2 ML SDV IVPUSH ONE (09:47)
[2022-01-06] MEDS ORDERED: diphenhydrAMINE 50 MG/ML SDV IVPUSH ONE (09:47)
[2022-01-06] MEDS ORDERED: Ibuprofen 800 MG Tab PO ONE (09:55)
[2022-01-06] MEDS ORDERED: Dextrose 5%-0.9% NaCl 1,000 ML IV SCH (10:00)
[2022-01-06 11:08] LABS: CORONAVIRUS COVID-19 NAA NEGATIVE (NEGATIVE)
== END 2022-01-06 11:44 | disposition home or self-care (01) ==
LOC: JD.ED 09:28
DX: J15.6 Pneumonia due to other Gram-negative bacteria (principal); F17.210 Nicotine dependence, cigarettes, uncomplicated; E66.9 Obesity, unspecified; Z68.30 Body mass index [BMI] 30.0-30.9, adult; Z28.310 Unvaccinated for COVID-19; Z79.899 Other long term (current) drug therapy; Z20.822 Contact with and (suspected) exposure to COVID-19
CPT/HCPCS: 0240U; 71045; 99283; A9270; 99284

== ENCOUNTER 2022-02-02 00:58 | Emergency (ER) | payer MEDICAID ==
[2022-02-02] MEDS ORDERED: methylPREDNISolone Sodium Succinate 125 MG/2 ML SDV IVPUSH ONE (01:52)
[2022-02-02] MEDS ORDERED: Albuterol/Ipratropium 3.0-0.5 MG/3 ML Neb Soln NEB ONE (01:53)
[2022-02-02] MEDS ORDERED: Sodium Chloride 0.9% 1,000 ML IV ONE (01:54)
[2022-02-02] MEDS ORDERED: Potassium Chloride 20 MEQ Tab.ER PO ONE (02:56)
== END 2022-02-02 03:30 | disposition home or self-care (01) ==
LOC: JD.ED 00:58
DX: J44.1 Chronic obstructive pulmonary disease with (acute) exacerbation (principal); K21.9 Gastro-esophageal reflux disease without esophagitis; E66.9 Obesity, unspecified; F17.210 Nicotine dependence, cigarettes, uncomplicated; Z68.41 Body mass index [BMI] 40.0-44.9, adult; Z79.899 Other long term (current) drug therapy
CPT/HCPCS: 36415; 71045; 80053; 84484; 85025; 94640; 96361; 96374; 99285; A9270; J2930; J7030; J7620-GY

== ENCOUNTER 2022-02-13 03:26 | Emergency (ER) | payer MEDICAID ==
[2022-02-13 04:48] LABS: ESTIMATED GFR 108 mL/min (>60)
[2022-02-13 04:54] LABS: ACETAMINOPHEN 0 ug/mL (10-30)
[2022-02-13 07:04] LABS: CORONAVIRUS COVID-19 NAA NEGATIVE (NEGATIVE)
== END 2022-02-13 09:04 | disposition home or self-care (01) ==
LOC: JD.ED 03:26
DX: R40.0 Somnolence (principal); J44.9 Chronic obstructive pulmonary disease, unspecified; E66.9 Obesity, unspecified; Z68.30 Body mass index [BMI] 30.0-30.9, adult; Z79.899 Other long term (current) drug therapy; Z20.822 Contact with and (suspected) exposure to COVID-19
CPT/HCPCS: 0240U; 36415; 36600; 70450; 71045; 80053; 80143; 80179; 80306; 80307; 82803; 83605; 83735; 83880; 84443; 84484; 85025; 85379; 87040; 93005; 99285

== ENCOUNTER 2022-02-14 07:35 | Inpatient (IN) | payer MEDICAID ==
[2022-02-14] MEDS ORDERED: Naloxone 0.4 MG/ML SDV ONE (07:41)
[2022-02-14] MEDS ORDERED: Albuterol/Ipratropium 3.0-0.5 MG/3 ML Neb Soln ONE (07:43)
[2022-02-14] MEDS ORDERED: Sodium Chloride 0.9% 10 ML Syringe FLUSH PRN (07:48)
[2022-02-14] MEDS ORDERED: Albuterol/Ipratropium 3.0-0.5 MG/3 ML Neb Soln NEB ONE (07:51)
[2022-02-14] MEDS ORDERED: Naloxone 0.4 MG/ML SDV IVPUSH ONE (08:03)
[2022-02-14] MEDS ORDERED: Sodium Chloride 0.9% 1,000 ML IV SCH (08:15)
[2022-02-14 08:25] LABS: ESTIMATED GFR 108 mL/min (>60)
[2022-02-14] MEDS ORDERED: Flumazenil 0.1 MG/ML 5 ML MDV IVPUSH ONE (08:27)
[2022-02-14] MEDS ORDERED: Albuterol 0.083% 2.5 MG/3 ML Neb Soln NEB ONE ×3 (08:31→09:42)
[2022-02-14] MEDS ORDERED: Naloxone 2 MG/2 ML Syringe IVPUSH ONE (08:54)
[2022-02-14] MEDS ORDERED: Albuterol 0.083% 2.5 MG/3 ML Neb Soln ONE (09:34)
[2022-02-14] MEDS ORDERED: methylPREDNISolone Sodium Succinate 125 MG/2 ML SDV IVPUSH ONE ×2 (09:42→20:00)
[2022-02-14] MEDS ORDERED: Albuterol 0.083% 2.5 MG/3 ML Neb Soln NEB PRN (11:13)
[2022-02-14] MEDS ORDERED: Ondansetron 4 MG/2 ML SDV IV PRN (11:13)
[2022-02-14] MEDS ORDERED: Acetaminophen 325 MG Tab PO PRN (11:13)
[2022-02-14] MEDS ORDERED: Potassium Chloride 20 MEQ Tab.ER PO ONE (11:18)
[2022-02-14] MEDS ORDERED: Pantoprazole 40 MG Vial IVPUSH SCH (12:30)
[2022-02-14] MEDS ORDERED: diphenhydrAMINE 50 MG/ML SDV IVPUSH PRN (12:48)
[2022-02-14] MEDS: D5 1/2 NS w/ 20 mEq/L KCl 1,000 ML IV SCH (13:00)
[2022-02-14] MEDS: Albuterol/Ipratropium 3.0-0.5 MG/3 ML Neb Soln NEB SCH ×3 (13:05→21:09)
[2022-02-14] MEDS: Potassium Chloride 10 MEQ in Premix Bag 1 BAG IV SCH ×4 (13:06→16:37)
[2022-02-14] MEDS ORDERED: Labetalol 100 MG/20 ML MDV IVPUSH PRN (13:22)
[2022-02-14] MEDS ORDERED: Thiamine 200 MG in Sodium Chloride 0.9% 100 ML IV SCH (13:30)
[2022-02-14] MEDS: Enoxaparin 40 MG/0.4 ML Syringe SUBCUT SCH (13:46)
[2022-02-14] MEDS ORDERED: Folic Acid 50 MG/10 ML MDV IV SCH (14:00)
[2022-02-14] MEDS ORDERED: Thiamine 200 MG/2 ML MDV IVPUSH SCH (14:00)
[2022-02-14] MEDS ORDERED: Albuterol/Ipratropium 3.0-0.5 MG/3 ML Neb Soln NEB SCH (16:00)
[2022-02-14] MEDS ORDERED: LORazepam 2 MG/ML SDV IVPUSH PRN (16:55)
[2022-02-15] MEDS: Albuterol/Ipratropium 3.0-0.5 MG/3 ML Neb Soln NEB SCH ×4 (03:14→13:41)
[2022-02-15] MEDS: D5 1/2 NS w/ 20 mEq/L KCl 1,000 ML IV SCH (04:41)
[2022-02-15] MEDS ORDERED: predniSONE 20 MG Tab PO SCH (07:00)
[2022-02-15] MEDS ORDERED: Lactulose Soln 10 GM/15 ML 30 ML UD Cup PO SCH (07:45)
[2022-02-15] MEDS ORDERED: Furosemide 40 MG/4 ML VIAL IVPUSH ONE (07:46)
[2022-02-15] MEDS: Enoxaparin 40 MG/0.4 ML Syringe SUBCUT SCH (08:24)
[2022-02-15] MEDS ORDERED: Folic Acid 1 MG Tab PO SCH (09:00)
[2022-02-15] MEDS ORDERED: methylPREDNISolone Sodium Succinate 125 MG/2 ML SDV IVPUSH SCH (09:00)
[2022-02-15] MEDS ORDERED: Nicotine 21 MG/24 Hr Patch TRDERM SCH (09:00)
[2022-02-15] MEDS ORDERED: Thiamine 100 MG Tab PO SCH (09:00)
[2022-02-15] MEDS ORDERED: Pantoprazole 40 MG Tab.CR PO SCH ×2 (09:00)
[2022-02-15] MEDS ORDERED: ClonazePAM 0.5 MG Tab PO PRN (09:39)
[2022-02-15] MEDS ORDERED: Metoprolol Succinate 25 MG Tab.ER PO SCH (10:00)
[2022-02-15] MEDS ORDERED: busPIRone 15 MG Tab PO SCH (21:00)
[2022-02-16] MEDS ORDERED: OLANZapine 5 MG Tab PO SCH (09:00)
== END 2022-02-15 14:05 | disposition left against medical advice (07) | DRG 948 ==
LOC: JD.ED 07:35 → JD.ICU 11:05
PROVIDERS: ADMIT Internal Medicine; ATTEND Internal Medicine
DX: R41.82 Altered mental status, unspecified (principal); J44.1 Chronic obstructive pulmonary disease with (acute) exacerbation; E87.6 Hypokalemia; Z20.822 Contact with and (suspected) exposure to COVID-19; K21.9 Gastro-esophageal reflux disease without esophagitis; F31.9 Bipolar disorder, unspecified; R06.1 Stridor; F41.9 Anxiety disorder, unspecified; F19.11 Other psychoactive substance abuse, in remission; F10.21 Alcohol dependence, in remission; F17.210 Nicotine dependence, cigarettes, uncomplicated; E66.9 Obesity, unspecified; Z68.36 Body mass index [BMI] 36.0-36.9, adult; Z98.890 Other specified postprocedural states; Z87.19 Personal history of other diseases of the digestive system; Z79.899 Other long term (current) drug therapy; Z87.442 Personal history of urinary calculi
CPT/HCPCS: 36415; 36600; 70450; 70450-26; 71045; 71045-26; 80053; 80306; 80307; 82140; 82550; 82803; 82947; 83605; 83735; 83880; 84100; 85025; 86140; 87040; 93005; 94640; 94660; A9270-GY; C9113; J1650; J1940; J2310; J2930; J3411; J3480; J3490; J7030; J7620-GY

== ENCOUNTER 2022-03-13 17:48 | Emergency (ER) | payer OTHER, MEDICAID ==
[2022-03-13] MEDS ORDERED: fentaNYL 100 MCG/2 ML SDV ONE (17:51)
[2022-03-13] MEDS ORDERED: fentaNYL 100 MCG/2 ML SDV IVPUSH ONE ×2 (18:09→18:58)
[2022-03-13] MEDS ORDERED: Lactated Ringers 500 ML IV ONE (18:11)
[2022-03-13] MEDS ORDERED: fentaNYL 50 MCG/HR Transdermal Patch TRDERM SCH (19:00)
[2022-03-13] MEDS ORDERED: Diphtheria,Pertussis(Acell),Tetanus Vaccine 0.5 ML Syringe IM ONE (19:08)
[2022-03-13] MEDS ORDERED: Acetaminophen/HYDROcodone 325-5 MG Tab PO ONE (21:02)
== END 2022-03-13 21:43 | disposition home or self-care (01) ==
LOC: JD.ED 17:48
DX: S80.11XA Contusion of right lower leg, initial encounter (principal); J44.9 Chronic obstructive pulmonary disease, unspecified; E66.9 Obesity, unspecified; Z68.30 Body mass index [BMI] 30.0-30.9, adult; Z79.899 Other long term (current) drug therapy; V49.50XA Passenger injured in collision with unspecified motor vehicles in traffic accident, initial encounter; Y92.410 Unspecified street and highway as the place of occurrence of the external cause
CPT/HCPCS: 36415; 70450; 71250; 72125; 73552; 73590; 74176; 80053; 80306; 80307; 81001; 82150; 83605; 85025; 85610; 85730; 86850; 86900; 86901; 90471; 96361; 96374; 96376; 99285; A9270; J3010; J7120; 86922

== ENCOUNTER 2022-03-16 12:19 | Emergency (ER) | payer MEDICAID, OTHER ==
[2022-03-16] MEDS ORDERED: Acetaminophen/oxyCODONE 325-5 MG Tab PO ONE (13:04)
[2022-03-16] MEDS ORDERED: Ondansetron 4 MG Tab.DIS PO ONE (13:04)
== END 2022-03-16 15:05 | disposition home or self-care (01) ==
LOC: JD.ED 12:19
DX: R60.0 Localized edema (principal); S70.11XD Contusion of right thigh, subsequent encounter; S70.12XD Contusion of left thigh, subsequent encounter; J44.9 Chronic obstructive pulmonary disease, unspecified; F17.210 Nicotine dependence, cigarettes, uncomplicated; E66.9 Obesity, unspecified; Z68.42 Body mass index [BMI] 45.0-49.9, adult; Z79.899 Other long term (current) drug therapy
CPT/HCPCS: 93971; 99283; A9270

== ENCOUNTER 2022-04-01 10:04 | Inpatient (IN) | payer OTHER ==
[2022-04-01] MEDS ORDERED: Morphine 4 MG/ML Syringe IVPUSH ONE (10:47)
[2022-04-01] MEDS ORDERED: Ondansetron 4 MG/2 ML SDV IVPUSH ONE (10:48)
[2022-04-01] MEDS: Sodium Chloride 0.9% 10 ML Syringe FLUSH PRN ×3 (10:55→12:00)
[2022-04-01 11:08] LABS: ESTIMATED GFR 117 mL/min (>60)
[2022-04-01] MEDS ORDERED: Iopamidol 755 MG/ML 50 ML Bottle IVPUSH ONE (11:23)
[2022-04-01] MEDS ORDERED: Iopamidol 755 Mg/ML 100 ML Bottle IVPUSH ONE (11:23)
[2022-04-01] MEDS ORDERED: HYDROmorphone 1 MG/ML Syringe IVPUSH ONE ×2 (11:23→13:29)
[2022-04-01] MEDS ORDERED: Nicotine 21 MG/24 Hr Patch TRDERM ONE (13:00)
[2022-04-01] MEDS ORDERED: Piperacillin/Tazobactam 4.5 GM in Sodium Chloride 0.9% 100 ML IV ONE (13:48)
[2022-04-01] MEDS ORDERED: fentaNYL 100 MCG/2 ML SDV ONE (13:49)
[2022-04-01] MEDS ORDERED: Propofol 200 MG/20 ML SDV ONE (13:49)
[2022-04-01] MEDS ORDERED: Midazolam 1 MG/ML 2 ML SDV ONE (13:49)
[2022-04-01] MEDS ORDERED: Lidocaine 1% 5 ML VIAL ONE (13:50)
[2022-04-01] MEDS ORDERED: Lidocaine 1% 50 ML MDV ONE (14:04)
[2022-04-01] MEDS ORDERED: Bupivacaine 0.5%/EPINEPHrine 1:200,000 50 ML MDV ONE (14:04)
[2022-04-01] MEDS ORDERED: Lactated Ringers 1,000 ML IV ONE (14:30)
[2022-04-01] MEDS ORDERED: fentaNYL 100 MCG/2 ML SDV IVPUSH PRN (15:46)
[2022-04-01] MEDS ORDERED: Ondansetron 4 MG/2 ML SDV IVPUSH PRN ×2 (15:46→16:49)
[2022-04-01] MEDS ORDERED: LORazepam 2 MG/ML SDV IVPUSH ONE (16:07)
[2022-04-01] MEDS ORDERED: LORazepam 2 MG/ML SDV IVPUSH PRN ×2 (16:58→18:24)
[2022-04-01] MEDS: Folic Acid 1 MG Tab PO SCH (17:31)
[2022-04-01] MEDS: Thiamine 100 MG Tab PO SCH (17:31)
[2022-04-01] MEDS: Sodium Chloride 0.9% 1,000 ML IV SCH (17:31)
[2022-04-01] MEDS ORDERED: Albuterol 0.083% 2.5 MG/3 ML Neb Soln NEB PRN (18:19)
[2022-04-01] MEDS ORDERED: Lactated Ringers 1,000 ML IV SCH (18:30)
[2022-04-01] MEDS: Multivitamin Tab PO SCH (20:01)
[2022-04-01] MEDS: HYDROmorphone 0.5 MG/0.5 ML Syringe IVPUSH PRN (20:01)
[2022-04-01] MEDS: Piperacillin/Tazobactam 4.5 GM in Sodium Chloride 0.9% 100 ML IV SCH (20:02)
[2022-04-01] MEDS: Potassium Chloride 10 MEQ in Premix Bag 1 BAG IV SCH ×4 (20:02→23:32)
[2022-04-02] MEDS: Sodium Chloride 0.9% 1,000 ML IV SCH ×3 (01:37→18:15)
[2022-04-02] MEDS: Piperacillin/Tazobactam 4.5 GM in Sodium Chloride 0.9% 100 ML IV SCH ×3 (03:30→20:33)
[2022-04-02] MEDS: HYDROmorphone 0.5 MG/0.5 ML Syringe IVPUSH PRN (05:02)
[2022-04-02] MEDS: Morphine 2 MG/ML SYRINGE IVPUSH PRN ×3 (08:33→17:09)
[2022-04-02] MEDS ORDERED: Lidocaine 1% 5 ML VIAL ONE (10:35)
[2022-04-02] MEDS ORDERED: Lidocaine 1% 2 ML ONE (10:35)
[2022-04-02] MEDS ORDERED: Rocuronium 50 MG/5 ML Vial ONE (10:35)
[2022-04-02] MEDS ORDERED: fentaNYL 100 MCG/2 ML SDV ONE (10:37)
[2022-04-02] MEDS ORDERED: Propofol 200 MG/20 ML SDV ONE (10:37)
[2022-04-02] MEDS ORDERED: Sugammadex Sodium 200 MG/2 ML VIAL ONE (10:42)
[2022-04-02] MEDS ORDERED: Midazolam 1 MG/ML 2 ML SDV ONE (10:47)
[2022-04-02] MEDS ORDERED: Lactated Ringers 1,000 ML IV ONE (11:00)
[2022-04-02] MEDS ORDERED: Dexamethasone 4 MG/ML 5 ML MDV ONE (11:38)
[2022-04-02] MEDS ORDERED: Ondansetron 4 MG/2 ML SDV ONE (11:38)
[2022-04-02] MEDS: Thiamine 100 MG Tab PO SCH (13:05)
[2022-04-02] MEDS: Nicotine 21 MG/24 Hr Patch TRDERM SCH (13:05)
[2022-04-02] MEDS: Folic Acid 1 MG Tab PO SCH (13:05)
[2022-04-02] MEDS: Multivitamin Tab PO SCH (20:33)
[2022-04-03] MEDS: Piperacillin/Tazobactam 4.5 GM in Sodium Chloride 0.9% 100 ML IV SCH (03:17)
[2022-04-03] MEDS: Morphine 2 MG/ML SYRINGE IVPUSH PRN ×7 (05:02→20:45)
[2022-04-03] MEDS: Folic Acid 1 MG Tab PO SCH (09:00)
[2022-04-03] MEDS: Thiamine 100 MG Tab PO SCH (09:00)
[2022-04-03] MEDS: Nicotine 21 MG/24 Hr Patch TRDERM SCH (09:00)
[2022-04-03] MEDS: ceFAZolin 2 GM in Sodium Chloride 0.9% 50 ML IV SCH ×2 (10:31→18:25)
[2022-04-03] MEDS: Enoxaparin 40 MG/0.4 ML Syringe SUBCUT SCH (10:31)
[2022-04-03] MEDS: Pantoprazole 40 MG Tab.CR PO SCH (10:32)
[2022-04-03] MEDS: busPIRone 15 MG Tab PO SCH ×2 (10:32→20:13)
[2022-04-03] MEDS: Metoprolol Succinate 25 MG Tab.ER PO SCH (10:37)
[2022-04-03] MEDS: Multivitamin Tab PO SCH (20:13)
[2022-04-03] MEDS: Docusate Sodium 100 MG Cap PO SCH (20:13)
[2022-04-03] MEDS: OLANZapine 5 MG Tab PO SCH (20:13)
[2022-04-04] MEDS: Morphine 2 MG/ML SYRINGE IVPUSH PRN ×8 (01:04→22:45)
[2022-04-04] MEDS: ceFAZolin 2 GM in Sodium Chloride 0.9% 50 ML IV SCH ×3 (02:21→19:13)
[2022-04-04] MEDS: Metoprolol Succinate 25 MG Tab.ER PO SCH (08:18)
[2022-04-04] MEDS: Pantoprazole 40 MG Tab.CR PO SCH (08:18)
[2022-04-04] MEDS: Docusate Sodium 100 MG Cap PO SCH ×2 (08:18→20:00)
[2022-04-04] MEDS: Potassium Chloride 20 MEQ Tab.ER PO SCH ×2 (08:18→20:00)
[2022-04-04] MEDS: Thiamine 100 MG Tab PO SCH (08:18)
[2022-04-04] MEDS: Nicotine 21 MG/24 Hr Patch TRDERM SCH (08:21)
[2022-04-04] MEDS: Enoxaparin 40 MG/0.4 ML Syringe SUBCUT SCH (08:21)
[2022-04-04] MEDS: busPIRone 15 MG Tab PO SCH ×2 (08:21→20:00)
[2022-04-04] MEDS: Multivitamin Tab PO SCH (20:00)
[2022-04-04] MEDS: OLANZapine 5 MG Tab PO SCH (20:00)
[2022-04-05] MEDS: ceFAZolin 2 GM in Sodium Chloride 0.9% 50 ML IV SCH ×2 (02:16→11:03)
[2022-04-05] MEDS ORDERED: Potassium Chloride 20 MEQ Tab.ER PO ONE (06:07)
[2022-04-05] MEDS: Morphine 2 MG/ML SYRINGE IVPUSH PRN ×3 (06:19→11:53)
[2022-04-05] MEDS: Nicotine 21 MG/24 Hr Patch TRDERM SCH (09:05)
[2022-04-05] MEDS: Pantoprazole 40 MG Tab.CR PO SCH (09:06)
[2022-04-05] MEDS: Docusate Sodium 100 MG Cap PO SCH (09:06)
[2022-04-05] MEDS: Thiamine 100 MG Tab PO SCH (09:06)
[2022-04-05] MEDS: Metoprolol Succinate 25 MG Tab.ER PO SCH (09:07)
[2022-04-05] MEDS: busPIRone 15 MG Tab PO SCH (09:08)
[2022-04-05] MEDS: Enoxaparin 40 MG/0.4 ML Syringe SUBCUT SCH (09:08)
[2022-04-05] MEDS ORDERED: oxyCODONE 5 MG Tab PO PRN (11:37)
== END 2022-04-05 14:44 | disposition home or self-care (01) | DRG 940 ==
LOC: JD.ED 10:04 → JD.SDS 13:52 → JD.ICU 16:34
PROVIDERS: ADMIT Surgery; ATTEND Surgery
PROC: 0JBN0ZZ Excision of Right Lower Leg Subcutaneous Tissue and Fascia, Open Approach (ICD-10-PCS; principal; 2022-04-01)
PROC: 0Y3H0ZZ Control Bleeding in Right Lower Leg, Open Approach (ICD-10-PCS; 2022-04-01)
PROC: 0JBN0ZZ Excision of Right Lower Leg Subcutaneous Tissue and Fascia, Open Approach (ICD-10-PCS; 2022-04-02)
DX: S80.11XD Contusion of right lower leg, subsequent encounter (principal); F10.231 Alcohol dependence with withdrawal delirium; Z68.42 Body mass index [BMI] 45.0-49.9, adult; F19.11 Other psychoactive substance abuse, in remission; E87.6 Hypokalemia; K21.9 Gastro-esophageal reflux disease without esophagitis; J44.9 Chronic obstructive pulmonary disease, unspecified; F41.9 Anxiety disorder, unspecified; F31.9 Bipolar disorder, unspecified; E66.9 Obesity, unspecified; R06.1 Stridor; F17.210 Nicotine dependence, cigarettes, uncomplicated; Z87.442 Personal history of urinary calculi; Z79.52 Long term (current) use of systemic steroids; Z79.899 Other long term (current) drug therapy
CPT/HCPCS: 36415; 73701-26-RT; 73701-RT; 80048; 80053; 80306; 80307; 83605; 83735; 84100; 85025; 85027; 87040; 87070; 87205; 94640; 97161-GP; 97608; A9270-GY; J0690; J1100; J1170; J1650; J2001; J2060; J2250; J2270; J2405; J2543; J2704; J3010; J3475; J3480; J3490; J7030; J7120; Q9967

== ENCOUNTER 2022-04-06 15:46 | Emergency (ER) | payer OTHER | END 2022-04-06 17:09 | disposition home or self-care (01) | LOC: JD.ED 15:46 | DX: Z48.01 Encounter for change or removal of surgical wound dressing (principal); Z79.899 Other long term (current) drug therapy; Z87.891 Personal history of nicotine dependence | CPT/HCPCS: 99282 ==

== ENCOUNTER 2022-04-17 03:08 | Emergency (ER) | payer OTHER | END 2022-04-17 03:20 | disposition left against medical advice (07) | LOC: JD.ED 03:08 | DX: Z48.01 Encounter for change or removal of surgical wound dressing (principal); Z53.21 Procedure and treatment not carried out due to patient leaving prior to being seen by health care provider | CPT/HCPCS: 99282 ==

== ENCOUNTER 2022-07-17 21:54 | Emergency (ER) | payer SELFPAY ==
[2022-07-17] MEDS ORDERED: Sodium Chloride 0.9% 10 ML Syringe FLUSH PRN (22:19)
[2022-07-17] MEDS ORDERED: Ondansetron 4 MG/2 ML SDV IVPUSH ONE (22:28)
[2022-07-17] MEDS ORDERED: Sodium Chloride 0.9% 1,000 ML IV SCH (22:30)
[2022-07-17] MEDS ORDERED: LORazepam 2 MG/ML SDV IVPUSH ONE (22:57)
[2022-07-18] MEDS ORDERED: Potassium Chloride 10 MEQ in Premix Bag 1 BAG IV ONE (00:31)
[2022-07-18] MEDS ORDERED: Sodium Chloride 0.9% 1,000 ML IV SCH (00:45)
== END 2022-07-18 01:58 | disposition home or self-care (01) ==
LOC: JD.ED 21:54
DX: F10.129 Alcohol abuse with intoxication, unspecified (principal); R11.2 Nausea with vomiting, unspecified; E87.6 Hypokalemia; K21.9 Gastro-esophageal reflux disease without esophagitis; J44.9 Chronic obstructive pulmonary disease, unspecified; E66.9 Obesity, unspecified; Z68.43 Body mass index [BMI] 50.0-59.9, adult; Z79.899 Other long term (current) drug therapy; Y90.0 Blood alcohol level of less than 20 mg/100 ml
CPT/HCPCS: 36415; 80053; 80307; 83690; 85025; 96361; 96365; 96375; 99285; J2060; J2405; J3480; J3490; J7030

== ENCOUNTER 2022-09-15 13:46 | Emergency (ER) | payer SELFPAY | END 2022-09-15 14:47 | disposition left against medical advice (07) | LOC: JD.ED 13:46 | DX: R60.0 Localized edema (principal); F17.210 Nicotine dependence, cigarettes, uncomplicated; J44.9 Chronic obstructive pulmonary disease, unspecified; K21.9 Gastro-esophageal reflux disease without esophagitis; E66.9 Obesity, unspecified; Z68.42 Body mass index [BMI] 45.0-49.9, adult; Z79.899 Other long term (current) drug therapy | CPT/HCPCS: 99283; 99284 ==

== ENCOUNTER 2022-09-25 14:14 | Emergency (ER) | payer MEDICAID ==
[2022-09-25] MEDS ORDERED: Sodium Chloride 0.9% 10 ML Syringe FLUSH PRN (14:31)
[2022-09-25] MEDS ORDERED: HYDROmorphone 0.5 MG/0.5 ML Syringe IVPUSH ONE ×2 (14:32→16:03)
[2022-09-25 15:09] LABS: BASOPHILS ABSOLUTE AUTO 0.02 K/mm3 (0.01-0.08); BASOPHILS PERCENT AUTO 0.4 % (0.1-1.2); EOSINOPHILS ABSOLUTE AUTO 0.05 K/mm3 (0.04-0.54); EOSINOPHILS PERCENT AUTO 1.1 (0.8-7.0); HEMATOCRIT 38.7 % (40.1-51.0); IMMATURE GRAN ABSOLUTE AUTO 0.01 K/mm3 (0.00-0.10); IMMATURE GRAN PERCENT AUTO 0.2 % (<=1.0); LYMPHOCYTES ABSOLUTE AUTO 1.02 K/mm3 (1.32-3.57); LYMPHOCYTES PERCENT AUTO 21.9 % (21.8-53.1); MEAN CORPUSCULAR HEMOGLOBIN 33.6 pg (25.7-32.2); MEAN CORPUSCULAR HGB CONC 33.6 g/dl (32.2-35.5); MEAN PLATELET VOLUME 9.8 fl (9.4-12.3); MONOCYTES ABSOLUTE AUTO 0.44 K/mm3 (0.30-0.82); MONOCYTES PERCENT AUTO 9.4 % (5.3-12.2); NEUTROPHILS ABSOLUTE AUTO 3.12 K/mm3 (1.78-5.38); PLATELET COUNT,PLT 243 K/mm3 (163-337); RED BLOOD CELL COUNT 3.87 M/mm3 (4.63-6.08); WHITE BLOOD CELL COUNT,WBC 4.66 K/mm3 (4.23-9.07)
[2022-09-25 15:31] LABS: ALANINE AMINOTRANSFERASE,ALT 191 U/L (16-63); ALBUMIN 3.1 g/dl (3.4-5.0); ALKALINE PHOSPHATASE 166 U/L (46-116); ANION GAP 12.5 (5-15); ASPARTATE AMNIOTRANSFERASE,AST 253 U/L (15-37); BILIRUBIN TOTAL 1.3 mg/dL (0.2-1.0); BLOOD UREA NITROGEN,BUN 6 mg/dL (7-18); BUN/CREATININE RATIO 7.5 (14-18); C-REACTIVE PROTEIN 0.6 mg/dL (<1.0); CALCIUM 8.2 mg/dL (8.5-10.1); CARBON DIOXIDE,CO2 29 mEq/L (21-32); CHLORIDE,CL 104 mEq/L (98-107); CREATININE 0.8 mg/dL (0.7-1.3); ESTIMATED GFR 112 mL/min (>60); GLUCOSE RANDOM 107 mg/dL (70-99); PROTEIN TOTAL,TP 6.3 g/dl (6.4-8.2); SODIUM,NA 143 mEq/L (136-145)
[2022-09-25 15:41] LABS: POTASSIUM,K 2.5 mEq/L (3.5-5.1)
[2022-09-25] MEDS ORDERED: Potassium Chloride 20 MEQ Tab.ER PO ONE (16:09)
[2022-09-25] MEDS ORDERED: Sulfamethoxazole/Trimethoprim 800-160 MG Tab PO ONE (17:17)
== END 2022-09-25 17:45 | disposition home or self-care (01) ==
LOC: SUPCPDRO 14:14 → JD.ED 14:14
DX: L03.115 Cellulitis of right lower limb (principal); L03.116 Cellulitis of left lower limb; J44.9 Chronic obstructive pulmonary disease, unspecified; K21.9 Gastro-esophageal reflux disease without esophagitis; E66.9 Obesity, unspecified; Z68.30 Body mass index [BMI] 30.0-30.9, adult; Z79.899 Other long term (current) drug therapy
CPT/HCPCS: 36415; 80053; 83735; 85025; 86140; 93970; 96374; 96376; 99284; A9270; J1170; J3490

== ENCOUNTER 2022-10-02 08:57 | Emergency (ER) | payer MEDICAID ==
[2022-10-02] MEDS ORDERED: Ondansetron 4 MG/2 ML SDV IVPUSH ONE (09:28)
[2022-10-02] MEDS ORDERED: Sodium Chloride 0.9% 10 ML Syringe FLUSH PRN (09:28)
[2022-10-02] MEDS ORDERED: LORazepam 2 MG/ML SDV IVPUSH ONE ×2 (09:30→16:39)
[2022-10-02] MEDS ORDERED: Sodium Chloride 0.9% 1,000 ML IV SCH (09:30)
[2022-10-02 10:06] LABS: BASOPHILS ABSOLUTE AUTO 0.03 K/mm3 (0.01-0.08); BASOPHILS PERCENT AUTO 0.5 % (0.1-1.2); EOSINOPHILS ABSOLUTE AUTO 0.05 K/mm3 (0.04-0.54); EOSINOPHILS PERCENT AUTO 0.9 (0.8-7.0); HEMATOCRIT 41.3 % (40.1-51.0); HEMOGLOBIN 13.6 gm/dl (13.7-17.5); IMMATURE GRAN ABSOLUTE AUTO 0.02 K/mm3 (0.00-0.10); IMMATURE GRAN PERCENT AUTO 0.3 % (<=1.0); LYMPHOCYTES ABSOLUTE AUTO 0.82 K/mm3 (1.32-3.57); LYMPHOCYTES PERCENT AUTO 13.9 % (21.8-53.1); MEAN CORPUSCULAR HEMOGLOBIN 34.1 pg (25.7-32.2); MEAN CORPUSCULAR HGB CONC 32.9 g/dl (32.2-35.5); MEAN CORPUSCULAR VOLUME 103.5 fl (79.0-92.2); MEAN PLATELET VOLUME 10.2 fl (9.4-12.3); MONOCYTES ABSOLUTE AUTO 0.37 K/mm3 (0.30-0.82); MONOCYTES PERCENT AUTO 6.3 % (5.3-12.2); NEUTROPHILS ABSOLUTE AUTO 4.59 K/mm3 (1.78-5.38); NEUTROPHILS PERCENT AUTO 78.1 % (34.0-67.9); PLATELET COUNT,PLT 378 K/mm3 (163-337); RED BLOOD CELL COUNT 3.99 M/mm3 (4.63-6.08); WHITE BLOOD CELL COUNT,WBC 5.88 K/mm3 (4.23-9.07)
[2022-10-02 10:43] LABS: A/G RATIO 0.9 (1-2); ALBUMIN 3.3 g/dl (3.4-5.0); ANION GAP 12.9 (5-15); BUN/CREATININE RATIO 8.9 (14-18); C-REACTIVE PROTEIN 2.2 mg/dL (<1.0); CREATININE 0.9 mg/dL (0.7-1.3); EST CRCL DRUG DOSING (CG) 101.33 mL/min; MAGNESIUM 1.6 mg/dL (1.8-2.4); POTASSIUM,K 2.9 mEq/L (3.5-5.1)
[2022-10-02] MEDS ORDERED: Albuterol/Ipratropium 3.0-0.5 MG/3 ML Neb Soln NEB ONE (15:22)
[2022-10-02] MEDS ORDERED: Furosemide 40 MG/4 ML VIAL IVPUSH ONE (16:02)
[2022-10-02] MEDS: Potassium Chloride 10 MEQ in Premix Bag 1 BAG IV SCH ×4 (16:12→22:24)
[2022-10-02] MEDS ORDERED: cefTRIAXone 1 GM in Sodium Chloride 0.9% 100 ML IV ONE (16:38)
[2022-10-02] MEDS ORDERED: Potassium Chloride 20 MEQ Tab.ER PO ONE (17:54)
[2022-10-02 18:04] LABS: BARBITURATE SCREEN,URINE NEGATIVE (CUTOFF=200); BENZODIAZEPINES SCREEN,URINE PRESUMPTIVE POSITIVE (CUTOFF=150); BUPRENORPHINE SCREEN,URINE NEGATIVE (CUTOFF=10); METHADONE SCREEN, URINE NEGATIVE (CUT0FF=200); METHAMPHETAMINES SCREEN, URINE NEGATIVE (CUTOFF=500); OXYCODONE SCREEN,URINE NEGATIVE (CUT0FF=100); PROPOXYPHENE SCREEN,URINE NEGATIVE (CUTOFF=300); THC SCREEN,URINE 20 NG/ML NEGATIVE (CUTOFF=50)
[2022-10-02 18:11] LABS: AMPHETAMINES SCREEN, URINE NEGATIVE (CUTOFF=500)
[2022-10-02] MEDS ORDERED: cefTRIAXone 1 GM in Sodium Chloride 0.9% 100 ML IV SCH (18:30)
[2022-10-02] MEDS ORDERED: Magnesium Sulfate/Water 2 GM in Premix Bag 1 BAG IV ONE (18:31)
[2022-10-02] MEDS: Potassium Chloride 20 MEQ Tab.ER PO SCH (19:11)
[2022-10-02] MEDS: Furosemide 20 MG/2 ML VIAL IVPUSH SCH ×2 (19:12→23:40)
[2022-10-02] MEDS ORDERED: chlordiazePOXIDE 25 MG Cap PO ONE (20:38)
[2022-10-02 22:21] LABS: ANION GAP 6.1 (5-15); CALCIUM 8.5 mg/dL (8.5-10.1); EST CRCL DRUG DOSING (CG) 91.2 mL/min; POTASSIUM,K 3.1 mEq/L (3.5-5.1)
[2022-10-03] MEDS ORDERED: Ibuprofen 800 MG Tab PO ONE
[2022-10-03] MEDS: Potassium Chloride 20 MEQ Tab.ER PO SCH ×3 (00:22→16:11)
[2022-10-03] MEDS: LORazepam 2 MG/ML SDV IVPUSH PRN ×5 (07:22→20:03)
[2022-10-03] MEDS ORDERED: methylPREDNISolone Sodium Succinate 125 MG/2 ML SDV IVPUSH ONE (07:25)
[2022-10-03] MEDS ORDERED: Albuterol/Ipratropium 3.0-0.5 MG/3 ML Neb Soln NEB ONE (07:25)
[2022-10-03] MEDS: Furosemide 20 MG/2 ML VIAL IVPUSH SCH ×3 (07:27→19:15)
[2022-10-03 09:12] LABS: A/G RATIO 0.8 (1-2); ALBUMIN 3.2 g/dl (3.4-5.0); ANION GAP 8.3 (5-15); BILIRUBIN TOTAL 2.2 mg/dL (0.2-1.0); BUN/CREATININE RATIO 12.5 (14-18); CALCIUM 8.8 mg/dL (8.5-10.1); CREATININE 0.8 mg/dL (0.7-1.3); POTASSIUM,K 3.3 mEq/L (3.5-5.1)
[2022-10-03] MEDS: Ondansetron 4 MG/2 ML SDV IVPUSH PRN ×2 (09:27→18:42)
[2022-10-03] MEDS: Albuterol/Ipratropium 3.0-0.5 MG/3 ML Neb Soln NEB PRN ×2 (12:42→19:40)
[2022-10-03] MEDS: methylPREDNISolone Sodium Succinate 125 MG/2 ML SDV IVPUSH SCH (13:30)
[2022-10-03 16:22] LABS: BASE EXCESS ARTERIAL 5.2 (-2-2.0); BICARBONATE,ARTERIAL 34.2 meq/L (22.0-26.0); O2 SATURATION ARTERIAL 48.1 % (96.0-97.0)
[2022-10-03] MEDS ORDERED: Iopamidol 755 Mg/ML 100 ML Bottle IVPUSH ONE (16:32)
[2022-10-03] MEDS ORDERED: Sodium Chloride 0.9% 10 ML Syringe FLUSH ONE (16:32)
[2022-10-03] MEDS ORDERED: Sodium Chloride 0.9% 100 ML IV SCH (16:45)
[2022-10-03] MEDS ORDERED: cefTRIAXone 1 GM in Sodium Chloride 0.9% 100 ML IV SCH (17:00)
[2022-10-03] MEDS: Apixaban 5 MG Tab PO SCH ×2 (17:54→21:27)
[2022-10-04] MEDS: Albuterol/Ipratropium 3.0-0.5 MG/3 ML Neb Soln NEB PRN ×2 (00:07→05:27)
[2022-10-04] MEDS: Potassium Chloride 20 MEQ Tab.ER PO SCH ×2 (00:59→07:08)
[2022-10-04] MEDS ORDERED: Acetaminophen 325 MG Tab PO ONE (01:14)
[2022-10-04] MEDS: methylPREDNISolone Sodium Succinate 125 MG/2 ML SDV IVPUSH SCH (01:23)
[2022-10-04] MEDS: LORazepam 2 MG/ML SDV IVPUSH PRN ×3 (03:18→07:27)
[2022-10-04] MEDS: Furosemide 20 MG/2 ML VIAL IVPUSH SCH ×2 (05:27→07:31)
[2022-10-04] MEDS: Apixaban 5 MG Tab PO SCH (07:08)
== END 2022-10-04 07:40 ==
LOC: JD.ED 08:57
DX: I26.99 Other pulmonary embolism without acute cor pulmonale (principal); F10.130 Alcohol abuse with withdrawal, uncomplicated; E87.6 Hypokalemia; E83.42 Hypomagnesemia; R60.0 Localized edema; J44.9 Chronic obstructive pulmonary disease, unspecified; K21.9 Gastro-esophageal reflux disease without esophagitis; F17.210 Nicotine dependence, cigarettes, uncomplicated; E66.9 Obesity, unspecified; Z68.42 Body mass index [BMI] 45.0-49.9, adult; Z79.899 Other long term (current) drug therapy
CPT/HCPCS: 36415; 36600; 71045; 71275; 80048; 80053; 80143; 80179; 80306; 80307; 82140; 82803; 83605; 83735; 83880; 85025; 86140; 87040; 93005; 94640; 96361; 96365; 96366; 96368; 96375; 96376; 99285; A9270; J0696; J1940; J2060; J2405; J2930; J3475; J3480; J3490; J7030; Q9967; J7620-GY

== ENCOUNTER 2023-02-23 18:52 | Emergency (ER) | payer MEDICAID ==
[2023-02-23] MEDS ORDERED: Sodium Chloride 0.9% 10 ML Syringe FLUSH PRN (19:37)
[2023-02-23 19:58] LABS: BASOPHILS ABSOLUTE AUTO 0.1 K/mm3 (0.0-0.2); BASOPHILS PERCENT AUTO 0.6 % (0.0-1.0); EOSINOPHILS ABSOLUTE AUTO 0.1 K/mm3 (0.0-0.4); EOSINOPHILS PERCENT AUTO 0.7 % (0.0-6.0); HEMATOCRIT 44.7 % (42.0-52.0); HEMOGLOBIN 14.8 gm/dl (14.0-18.0); IMMATURE GRAN ABSOLUTE AUTO 0.04 K/mm3 (0.00-0.05); IMMATURE GRAN PERCENT AUTO 0.4 % (0.0-0.4); LYMPHOCYTES ABSOLUTE AUTO 2.1 K/mm3 (1.0-4.8); LYMPHOCYTES PERCENT AUTO 19.9 % (24.0-44.0); MEAN CORPUSCULAR HGB CONC 33.1 g/dl (32.0-36.0); MEAN CORPUSCULAR VOLUME 87.5 fl (83.0-99.0); MEAN PLATELET VOLUME 9.9 fl (9.4-12.4); MONOCYTES ABSOLUTE AUTO 0.6 K/mm3 (0.0-0.8); MONOCYTES PERCENT AUTO 5.6 % (0.0-8.0); NEUTROPHILS ABSOLUTE AUTO 7.5 K/mm3 (1.8-7.7); NEUTROPHILS PERCENT AUTO 72.8 % (41.0-71.0); PLATELET COUNT,PLT 344 K/mm3 (150-400); RED BLOOD CELL COUNT 5.11 M/mm3 (4.52-5.90); WHITE BLOOD CELL COUNT,WBC 10.34 K/mm3 (3.9-11.3)
[2023-02-23] MEDS ORDERED: Codeine/guaiFENesin 10-100 MG/5 ML Syrup 5 ML Syringe PO ONE (20:00)
[2023-02-23] MEDS ORDERED: Codeine/Promethazine 10-6.25 MG/5 ML Syrup 5 ML UD Cup PO STA (20:06)
[2023-02-23 20:20] LABS: A/G RATIO 0.9 (1-2); ALBUMIN 3.5 g/dl (3.4-5.0); ANION GAP 12.1 (5-15); BILIRUBIN TOTAL 0.4 mg/dL (0.2-1.0); CALCIUM 9.9 mg/dL (8.5-10.1); CREATININE 0.9 mg/dL (0.7-1.3); EST CRCL DRUG DOSING (CG) 100.28 mL/min; ETHANOL BLOOD MEDICAL 0.07 gm% (0.00); POTASSIUM,K 3.1 mEq/L (3.5-5.1); PROTEIN TOTAL,TP 7.4 g/dl (6.4-8.2)
[2023-02-23 20:35] LABS: CORONAVIRUS COVID-19 NAA NEGATIVE (NEGATIVE); INFLUENZA A NAA NEGATIVE (NEGATIVE)
== END 2023-02-23 21:25 | disposition home or self-care (01) ==
LOC: JD.ED 18:52
DX: J06.9 Acute upper respiratory infection, unspecified (principal); R05.9 Cough, unspecified; J44.9 Chronic obstructive pulmonary disease, unspecified; K21.9 Gastro-esophageal reflux disease without esophagitis; E66.9 Obesity, unspecified; Z68.42 Body mass index [BMI] 45.0-49.9, adult; Z20.822 Contact with and (suspected) exposure to COVID-19
CPT/HCPCS: 0240U; 36415; 71045; 80053; 80307; 85025; 85379; 99284; A9270; J3490; 99283